=== PATIENT | male | born 1955 | race Caucasian/White ===

== ENCOUNTER 2017-11-17 06:38 | Inpatient (IN) ==
--- NOTE | 2017-11-17 07:09 | Anesthesia Preoperative Report ---
Anesthesia Preoperative Record - Date and Time Date: 11/17/17 Preoperative Diagnosis: Right Hemicolectomy c18.0 Proposed Procedure: Right hemicolectomy NPO Since Date: 11/17/17 NPO Since Time: 00:00 Allergies/Adverse Reactions: Allergies Allergy/AdvReac Type Severity Reaction Status Date / Time No Known Allergies Allergy Verified 11/07/17 15:32 - Vital Signs Vital Signs: Temperature 97.8 F 11/17/17 07:06 Pulse Rate 73 11/17/17 07:06 Respiratory Rate 18 11/17/17 07:06 Blood Pressure 175/104 H 11/17/17 07:06 Pulse Oximetry 96 11/17/17 07:06 Height and Weight: Height 1.73 m Weight 113 kg Body Mass Index 37.8 - Medications Inpatient Medications: Current Medications Ertapenem 1 g/ Sodium Chloride 100 mls @ 200 mls/hr IV PREOP ONE Stop: 11/17/17 16:00 Lactated Ringer's (Lactated Ringers) 1,000 mls @ 50 mls/hr IV .Q20H DARIELA Isopropyl Alcohol (Nozin Nasal Swab) 3 each KEN PREOP ONE Stop: 11/17/17 15:28 Lidocaine HCl (Xylocaine-Mpf 1% Vial) 1 mg ID O ONE Stop: 11/17/17 15:28 Home Medications: Home Medications Medication Instructions Recorded Confirmed Type ferrous sulfate 325 mg (65 mg 325 mg PO DAILY tab 10/16/17 11/16/17 History iron) tablet Is Patient on Beta Eduin?: No - Medical History Respiratory: DENIES: Sleep Apnea Gastrointestional: Reports: Gastroesophageal Reflux Disease, Other (COLON CANCER ) Renal/Endocrine: Reports: Thyroid Disease (DOES NOT TAKE MEDICATION) Other History: Reports: Anesthesia Reactions (N&V), Cancer (COLON) - Surgical History GI Surgery/Treatments: Reports: Appendectomy, Cholecystectomy, Hernia Repair, Colonoscopy Anesthesia Reactions: None Hx Family Anesthesia Reaction: No History of Motion Sickness: No - Social History Smoking Status: Never smoker Hx Chewing Tobacco Use: No Second Hand Exposure: No Substance Use Type: does not use Alcohol Intake Frequency: does not drink - Pertinent Findings EKG: Sinus Rhythm - Physical Exam Respiratory Exam: Present: lungs clear Cardiovascular Exam: Present: regular rate and rhythm - Airway Assessment Mallampati Score: II TMD: 3 Fingerbreadths Neck Extension: fair Overall Assessment: no airway concerns - ASA ASA Score: 3 - Plan Anesthesia: General Inhalation Gases - Discussion Discussion: Discussed risks/options/alternatives of anesthesia and questions answered. Patient consents. Nursing pain assessment noted. Attestation Statement: Prior to the delivery of any anesthetic medication, I examined the patient, developed the plan, obtained the patient's consent and discussed the risk and benefits of the procedure with the patient/guardian. - Additional Information Seen by Anesthesia: Yes
[2017-11-17] MEDS ORDERED: INDOCYANINE GREEN 25mg INJECTION ONE (07:36)
[2017-11-17] MEDS: LR 1,000 ML IV SCH ×3 (07:45→10:47)
[2017-11-17] MEDS ORDERED: SUCCINYLCHOLINE 20mg/mL 10mL INJECTION ONE (08:08)
[2017-11-17] MEDS ORDERED: ROCURONIUM 50 MG/5 ML INJECTION IVP ONE ×2 (08:08→09:51)
[2017-11-17] MEDS ORDERED: PROPOFOL 20 ML ONE (08:08)
[2017-11-17] MEDS ORDERED: LIDOCAINE 2% (100mg/5mL) PF 5ml vl ONE (08:08)
[2017-11-17] MEDS ORDERED: SALINE FLUSH 10ml SYRINGE ONE (08:09)
[2017-11-17] MEDS ORDERED: FentaNYL 250 MCG/5 ML INJECTION ONE (09:03)
[2017-11-17] MEDS ORDERED: GLYCOPYRROLATE 0.4 MG/2 ML INJECTION ONE (09:23)
[2017-11-17] MEDS ORDERED: HYDROMORPHONE 2 MG/ML INJECTION ONE (10:19)
[2017-11-17] MEDS ORDERED: HYDRALAZINE 20 MG/ML INJECTION ONE (10:26)
--- NOTE | 2017-11-17 11:33 | General Surgery Procedure Note ---
Date of Procedure: 11/17/17 Surgeon: Dwight Postoperative Diagnosis: Adenocarcinoma of cecum Procedure: Right hemicolectomy Estimated Blood Loss: See Anesthesia Record.
[2017-11-17] MEDS ORDERED: ONDANSETRON 4 MG/2 ML INJECTION IVP PRN (11:53)
[2017-11-17] MEDS ORDERED: METOCLOPRAMIDE 10mg/2ml INJECTION IVP PRN (11:53)
[2017-11-17] MEDS: HYDROMORPHONE 2 MG/ML INJECTION IVP PRN ×4 (12:11→23:06)
[2017-11-17] MEDS: D5-1/2NS with KCL 20mEq 1,000 ML IV SCH ×2 (13:02→22:23)
[2017-11-17 13:27] VITALS: BMI 39.1
[2017-11-17] MEDS: MORPHINE SULFATE 10 MG SYRINGE IV PRN ×2 (13:33→15:15)
[2017-11-17] MEDS ORDERED: LIDOCAINE 1% (10mg/ml) 2mL INJ PF SDV ID ONE (15:27)
[2017-11-17] MEDS ORDERED: NOZIN NASAL SWAB NAS ONE (15:27)
[2017-11-17] MEDS ORDERED: ERTAPENEM 1 G in NS 100 ML IV ONE (15:31)
[2017-11-17] MEDS: KETOROLAC 15 MG/ML INJECTION IVP PRN (17:38)
--- NOTE | 2017-11-17 21:02 | Operative Note ---
DATE OF OPERATION 11/17/2017 PREOPERATIVE DIAGNOSIS 1. Adenocarcinoma of the cecum. 2. Obesity. POSTOPERATIVE DIAGNOSES 1. Adenocarcinoma of ascending colon. 2. Intraabdominal adhesions. 3. Obesity. OPERATION Laparotomy, lysis of intraabdominal adhesions and open right hemicolectomy. SURGEON Dr. Dwight Ly ANESTHESIA General. ASA Class 3 FINDINGS This patient did have a large bulky mass at the ascending colon. Previous biopsy of this mass at colonoscopy had shown that this was an adenocarcinoma. There were no obvious peritoneal implants present. There were no obvious omental implants present. There was no obvious direct extension of the tumor through the wall of the colon into surrounding structures. The liver was carefully examined and there was no evidence of any metastatic disease at the liver. The small bowel appeared normal. This patient had undergone a previous laparoscopic cholecystectomy operation. There were some adhesions at the subhepatic space from that operation. Gallbladder was absent as a result of previous operative removal. The patient had undergone a previous appendectomy operation. The patient did have an old transversely oriented right lower quadrant abdominal incision scar associated with the previous appendectomy operation. The patient did have intraabdominal adhesions at the right lower quadrant of the abdomen which were thought to be associated with the previous appendectomy operation. These adhesions did bind the greater omentum and loops of intestine to the anterior abdominal wall parietal peritoneum. The greater omentum did extend all the way down into the pelvis and was bound down by adhesions to structures within the pelvis. The patient was noted to have quite a bit of intraabdominal adipose tissue. DESCRIPTION OF OPERATION The patient was placed in supine position on the operating table. General anesthesia was satisfactorily induced. The abdomen was prepped and draped in routine sterile fashion. A midline vertically oriented abdominal incision was made and extended through the abdominal wall. The peritoneal cavity was entered. The Shaan wound protector was placed at the incision at this time. The Codman retractor was assembled at this time and used to provide exposure. The abdomen was explored with findings as described above. Adhesions at the right lower quadrant of the peritoneal cavity were divided. Adhesions binding greater omentum to structures down in the pelvis were divided and the greater omentum was able to be mobilized up out of the pelvis. The greater omentum was also dissected free from the anterior abdominal wall parietal peritoneum at the right side of the abdomen with division of adhesions at this area. The greater omentum was then from the right half of the transverse colon. The hepatic flexure of the colon was mobilized. The peritoneum along the right lateral gutter was incised. The ascending colon was mobilized medially. The duodenum was carefully identified and preserved from injury at this time. The mesentery of the transverse colon was transilluminated. The mesentery of the transverse colon was carefully examined. The position of the middle colic blood vessels was identified. A distal resection margin was selected at the mid transverse colon. The distal resection margin was selected to allow a good blood supply up to the end of the mid transverse colon which would be used for the anastomosis. The middle colic artery and vein were preserved to provide a good blood supply to the end of the remaining mid transverse colon which would be used for the anastomosis. The transverse colon was divided at the distal resection margin with the [employer] brand [id number] linear cutter stapler. This did allow a good blood supply to the remaining mesentery leading up to the remaining transverse colon. A proximal resection margin was selected at the terminal ileum. The terminal ileum was divided at the proximal resection margin with the [employer] brand TLC75 linear cutter stapler. Mesentery beneath the segment of terminal ileum to be resected was divided. This was done by doubly clamping the mesentery with right angle clamps, dividing the mesentery between clamps and ligating the pedicles of mesentery with 0-Vicryl ligatures. The ileocolic artery and vein were divided at the level of the root of the mesentery. The artery and vein were each individually doubly clamped with right angle clamps, divided between clamps and ligated with 0-Vicryl ligatures. The mesentery beneath the ascending colon was then divided at the level of the root of the mesentery. This was done by doubly clamping the mesentery with right angle clamps, dividing the mesentery between the right angle clamps and ligating the pedicles of mesentery with 0-Vicryl ligatures. The mesentery beneath the proximal transverse colon was then clamped and divided and ligated in the same manner. The specimen of terminal ileum, cecum, ascending colon and proximal transverse colon along with the underlying mesentery was then handed off as a specimen for study by the pathologist. Irrigation was performed at the peritoneal cavity. Hemostasis appeared be satisfactory everywhere. The stapled closed end of ileum was then brought up into a position adjacent to the stapled closed end of transverse colon. A functional end-to-end anastomosis was then created between the stapled closed end of the ileum and the stapled closed end of the transverse colon using the [employer] brand TLC75 linear cutter stapler and the [employer] brand TX60B stapler. The internal staple lines were inspected as this was done and they looked good. The external staple lines were also inspected and they looked good. There did appear to be a good blood supply to the anastomosis. There was no tension on the anastomosis. The anastomosis appeared to have satisfactory size. Two stitches of 3-0 Vicryl suture were placed at the crotch of the anastomosis. These were 3-0 Vicryl simple interrupted seromuscular stitches. Some small bowel contents of the ileum were then milked distally down to the anastomosis and through the anastomosis to distend up the anastomosis to look for any evidence of any leak at the anastomosis. This maneuver did not show any leak at the anastomosis. The anastomosis was then examined with immunofluorescence to examine the blood supply to the anastomosis. The patient was given 4 mL (10 mg) of indocyanine green dye intravenously. The [employer] laparoscope with immunofluorescence capability was then used to visualize the anastomosis after the administration of indocyanine green dye. The immunofluorescence at the anastomosis did show that there was a good blood supply to the anastomosis. The opening in the mesentery beneath the anastomosis was then closed with a continuous simple over- and-over stitch using 3-0 Vicryl suture. Hemostasis remained satisfactory throughout the peritoneal cavity. Part of the distal most aspect of the greater omentum did not have much attachment to the rest of the greater omentum. This distal piece of greater omentum was resected at this time and submitted for study by the pathologist. This did leave enough greater omentum remaining to be brought down over the anastomosis and over the loops of intestine beneath the incision. The Codman retractor was removed. The Shaan wound protector was removed. The surgeon, residential assistant and scrub nurse all changed gowns and gloves at this time. New sterile drapes were placed at the incision. A reserved clean instrument tray was used for closing the wound. The abdominal incision was closed. The fascial layer of the incision was closed and the linea alba was reapproximated with a continuous simple over-and- over stitch using #1 PDS suture. The skin margins at the incision were reapproximated with skin kiet. Sterile dressings were applied. Sponge, needle and instrument counts were all correct. The patient did appear to tolerate the operation well. The patient was transferred from the operating room to the recovery room in satisfactory condition. NIRAJ
[2017-11-18] MEDS: HYDROMORPHONE 2 MG/ML INJECTION IVP PRN ×4 (03:15→20:22)
[2017-11-18] MEDS: KETOROLAC 15 MG/ML INJECTION IVP PRN (07:50)
[2017-11-18] MEDS: CALCIUM CARBONATE Chewable 750mg TABLET PO PRN ×2 (08:47→15:33)
[2017-11-18] MEDS: ENOXAPARIN 40 MG/0.4 ML INJECTION SQ SCH (08:48)
[2017-11-18] MEDS: D5-1/2NS with KCL 20mEq 1,000 ML IV SCH ×2 (08:48→19:23)
[2017-11-18] MEDS ORDERED: PANTOPRAZOLE 40 MG INJECTION IVP SCH (09:00)
[2017-11-18] MEDS ORDERED: KETOROLAC 15 MG/ML INJECTION IVP ONE (09:02)
--- NOTE | 2017-11-18 10:22 | Progress Note ---
DATE 11/18/2017 POSTOP DAY #1 HISTORY This patient is in the intensive care unit at this time. The patient is doing well overall. He is alert and oriented. The patient has not been up out of bed yet. He is not having any nausea or vomiting. He is receiving intravenous Dilaudid and intravenous Toradol for pain control. PHYSICAL EXAMINATION VITAL SIGNS: Pulse is 70. Respiratory rate is 17. Blood pressure is 154/82. Oxygen saturation is 95% on room air. ABDOMEN: The abdominal incision looks good. The abdomen is not distended. INTAKE AND OUTPUT Urine output has been adequate. LABORATORY DATA White blood cell count is 9100. Hemoglobin is 12.9. Hematocrit is 38.8. Serum electrolytes are all normal. Serum creatinine is 1. IMPRESSION Doing well following laparotomy, lysis of intraabdominal adhesions and open right hemicolectomy on 11/17/2017. PLAN 1. Attempt to get the patient up out of bed in a chair and ambulate him a little bit today to increase mobilization of the patient. 2. Continue Lovenox and sequential compression devices for deep venous thrombosis prophylaxis. 3. Intravenous Pepcid for GI prophylaxis. MTDD
[2017-11-18] MEDS: FAMOTIDINE PB 20 MG/50 ML BAG IV SCH ×2 (11:17→21:36)
[2017-11-18] MEDS: KETOROLAC 30 MG/ML INJECTION IVP PRN (16:22)
[2017-11-19] MEDS: KETOROLAC 30 MG/ML INJECTION IVP PRN ×3 (02:42→18:28)
[2017-11-19] MEDS: D5-1/2NS with KCL 20mEq 1,000 ML IV SCH ×2 (06:05→17:04)
[2017-11-19] MEDS: FAMOTIDINE PB 20 MG/50 ML BAG IV SCH ×2 (09:06→21:45)
[2017-11-19] MEDS: ENOXAPARIN 40 MG/0.4 ML INJECTION SQ SCH ×2 (09:06→09:13)
--- NOTE | 2017-11-19 10:33 | Progress Note ---
DATE: 11/19/2017 POSTOP DAY #2 HISTORY The patient remains in the Intensive Care Unit. He has been up in the chair. He has been ambulating. He is not having any nausea or vomiting. He is using less analgesics for pain control. He is doing well overall. PHYSICAL EXAMINATION VITAL SIGNS: Temperature is 98.2 degrees Fahrenheit oral. Pulse is 57. Respiratory rate is 16. Blood pressure is 154/76. Oxygen saturation is 96% on room air. ABDOMEN: The abdominal incision looks good. NEUROLOGIC: The patient is alert and oriented. INTAKE AND OUTPUT Urine output is adequate. IMPRESSION Doing well following laparotomy, lysis of intraabdominal adhesions and open right hemicolectomy on 11/17/2017. PLAN 1. Start clear liquid diet with toast and crackers. 2. Continue to advance activity as tolerated. 3. Discontinue Wu catheter. 4. Continue Lovenox and sequential compression devices for deep venous thrombosis prophylaxis. 5. Continue intravenous Pepcid for GI prophylaxis. 6. Transfer patient from Intensive Care Unit out to a room on Surgical Unit. NIRAJ
[2017-11-19] MEDS ORDERED: ACETAMINOPHEN 500 MG TABLET PO PRN (12:13)
[2017-11-19] MEDS ORDERED: Oxycodone *IR* 5 MG TABLET PO PRN (12:13)
[2017-11-19] MEDS: ONDANSETRON 4 MG/2 ML INJECTION IVP PRN ×2 (13:46→20:01)
[2017-11-19] MEDS: PROMETHAZINE 25 MG INJECTION IVP PRN (16:27)
[2017-11-19] MEDS ORDERED: METOCLOPRAMIDE 10mg/2ml INJECTION IVP PRN (22:49)
[2017-11-20] MEDS: PROMETHAZINE 25 MG INJECTION IVP PRN (00:15)
[2017-11-20] MEDS: KETOROLAC 30 MG/ML INJECTION IVP PRN (04:48)
[2017-11-20] MEDS: D5-1/2NS with KCL 20mEq 1,000 ML IV SCH ×2 (04:51→18:07)
[2017-11-20] MEDS ORDERED: PPN - PHARMACY CONSULT MC ONE (09:17)
--- NOTE | 2017-11-20 09:23 | General Surgery Progress Note ---
Subjective Patient reports: pain is less (states minimal pain), no bowel movement (he thinks he might have passed a little flatus.), vomiting (during the night, NG placed and now denies nausea), other (states he is not voiding much, not having trouble starting stream, "just not going much") - Vital Signs Last Vital Signs Temp 97.5 F 11/20/17 07:59 Pulse 85 11/20/17 07:59 Resp 18 11/20/17 07:59 BP 147/96 H 11/20/17 07:59 Pulse Ox 96 11/20/17 07:59 - Laboratory Result Diagrams: 11/20/17 09:42 11/20/17 09:42 - Pathology Pending - Radiology KUB upright shows ileus pattern, NG not completely in the stomach - Abnormal Exam Abdominal: obese, hypoactive bowel sounds (abscent bowel sounds), firm, other ( NG with light bourgeois fluid in canister) - Normal Exam General: awake, alert, no acute distress Cardiovascular: regular rate Respiratory: no labored breathing Abdominal: soft, incision(s) (CDI, kiet in tact, no erythema, ecchmosis) Male: other (urine output 200 ml since midnight) Psychiatric: other (doesn't converse other than to barely answer questions) Neurological: CN 2-12 grossly intact Assessment and Plan (1) Colon cancer, ascending Current Visit: Yes Status: Acute (2) Ileus following gastrointestinal surgery Current Visit: Yes Status: Acute (3) Obesity Current Visit: No Status: Chronic Qualifiers: Body mass index: BMI 38.0-38.9 Plan: POD #3 New development of Ileus. Advance NG about 10 cm. DC clear liquids and continue sips and chips Pharmacy consult for PPN, may need PICC and TPN if ileus does not resolve soon. CBC, BMP now and in am PT consult for ambulation and strength. monitor urine output Encourage ambulation. Hospital Course Summary Disclaimer: The visit summary below is not to be considered part of the above Progress Note. Hospital Course: 11/18/1017 POD #1 IMPRESSION Doing well following laparotomy, lysis of intraabdominal adhesions and open right hemicolectomy on 11/17/2017. PLAN 1. Attempt to get the patient up out of bed in a chair and ambulate him a little bit today to increase mobilization of the patient. 2. Continue Lovenox and sequential compression devices for deep venous thrombosis prophylaxis. 3. Intravenous Pepcid for GI prophylaxis. 11/19/2017 POD #2 PLAN 1. Start clear liquid diet with toast and crackers. 2. Continue to advance activity as tolerated. 3. Discontinue Wu catheter. 4. Continue Lovenox and sequential compression devices for deep venous thrombosis prophylaxis. 5. Continue intravenous Pepcid for GI prophylaxis. 6. Transfer patient from Intensive Care Unit out to a room on Surgical Unit. 11-20-2017 POD #3 New development of Ileus. Advance NG about 10 cm. DC clear liquids and continue sips and chips Pharmacy consult for PPN, may need PICC and TPN if ileus does not resolve soon. CBC, BMP now and in am, watch lytes, WBC, etc. PT consult for ambulation and strength. monitor urine output Encourage ambulation.
--- NOTE | 2017-11-20 09:51 | XRay Report ---
Indication: N/V XR abdomen 2V: Comparison: None Technique: Supine and erect films of the abdomen Findings: Patient shows multiple air-fluid levels involving both large and small bowel suggesting a generalized ileus. Midline soft tissue kiet are identified. No significant free air identified on the upright view. Mild bibasilar atelectasis noted. The NG tube needs to be advanced as it is currently in the distal esophagus. Somewhere between 12 [address] it into the stomach. This was called to the nursing floor. Impression: 1. NG tube needs to be advanced 12 at 15 cm. This was called to the nursing floor when study provided. 2. Random air fluid levels involving both large and small bowel most likely postoperative ileus. No significant free air identified on the upright view. .
--- NOTE | 2017-11-20 09:56 | Pharmacy Consult-TPN/PPN ---
Pharmacy Consult-TPN/PPN - Laboratory Information Chemistry Turbidity < 20 (0-20) 11/18/17 04:21 Sodium 140 MEQ/L (134-144) 11/18/17 04:21 Potassium 4.0 MEQ/L (3.6-5) 11/18/17 04:21 Chloride 105 MEQ/L (98-107) 11/18/17 04:21 Carbon Dioxide 27 MEQ/L (22-30) 11/18/17 04:21 Anion Gap 8 MEQ/L (5-15) 11/18/17 04:21 BUN 15.0 MG/DL (9-20) 11/18/17 04:21 Creatinine 1.0 MG/DL (0.8-1.5) D 11/18/17 04:21 GFR Calculation 76 11/18/17 04:21 BUN/Creatinine Ratio 15 RATIO (6-26) 11/18/17 04:21 Glucose 131 MG/DL (75-110) H 11/18/17 04:21 Calculated Osmolality 272 MOSM/KG (261-280) 11/18/17 04:21 Calcium 8.5 MG/DL (8.4-10.2) D 11/18/17 04:21 Total Bilirubin 0.50 MG/DL (0.20-1.30) 11/17/17 07:12 Icterus Index < 2 (0-7) 11/18/17 04:21 AST 41 U/L (17-59) 11/17/17 07:12 ALT 42 U/L (21-72) 11/17/17 07:12 Alkaline Phosphatase 166 U/L (38-126) H 11/17/17 07:12 Total Protein 8.6 G/DL (6.3-8.2) H 11/17/17 07:12 Albumin 4.8 G/DL (3.5-5.0) 11/17/17 07:12 Globulin 3.8 G/DL (2.4-3.6) H 11/17/17 07:12 Albumin/Globulin Ratio 1.3 RATIO (1.1-2.2) 11/17/17 07:12 Specimen Hemolysis 26 (0-25) H 11/18/17 04:21 Intake and Output 11/19/17 11/20/17 11/21/17 06:59 06:59 06:59 Intake Total 3380.000 / 3380.000 2270.000 / 2270.000 Output Total 1449 / 1449 2275 / 2275 Balance 1931.000 / 1931.000 -5.000 / -5.000 Weight 115.3 kg 115 kg Intake: IV 3050.000 / 3050.000 2090.000 / 2090.000 D5-1/2NS with KCL 20mEq 1,000 3000.000 / 3000.000 1990.000 / 1990.000 ml @ 100 mls/hr IV .Q10H DARIELA Rx #:[id number] Famotidine Pb 20 mg In 50 ml @ 50 / 50 100 / 100 100 mls/hr IV Q12H DARIELA Rx#: [id number] Oral 330 / 330 180 / 180 Output: Urine 400 / 400 Emesis 0 / 0 1200 / 1200 Urine Amount (Catheter) 1449 / 1449 275 / 275 Gastric Drainage 400 / 400 Right Nare 400 / 400 Other: Urine Appearance Clear Clear Urine Color Yellow Light Cristel Emesis Description Bile Retching Fecal Matter # Bowel Movements 0 # Unmeasured Emesis Episodes 3 - Consult Information Consult noted by Osbaldo Spears to begin PPN on Mr Elam, who is 62 years old and weighs 115kg. His electrolytes are in normal range. Will begin standard PPN at 100 mls/hr and continue to monitor. Thank you.
[2017-11-20] MEDS: FAMOTIDINE PB 20 MG/50 ML BAG IV SCH ×2 (10:32→21:36)
[2017-11-20] MEDS: ENOXAPARIN 40 MG/0.4 ML INJECTION SQ SCH (10:32)
[2017-11-20] MEDS: MULTI-VIT INFUSION 10 ML, MULTI-TRACE ELEMENTS 1 ML in PPN - STANDARD FORMULA 2,000 ML IV SCH (11:42)
[2017-11-20] MEDS ORDERED: D5-1/2NS with KCL 20mEq 1,000 ML IV SCH (15:15)
--- NOTE | 2017-11-20 15:50 | Progress Note ---
DATE OF SERVICE 11/20/2017 FINDINGS Mr. Elam was without complaints this morning. I was notified last evening that he was experiencing repeated nausea and vomiting. It was my intubation that the patient most likely had a postoperative ileus and I had ordered an EGD to be placed as well as obtaining some additional films this morning. Upon questioning the patient he denies really any abdominal pain. His only complaint was that of prior nausea and vomiting. This morning he denies significant nausea. PHYSICAL EXAM VITAL SIGNS: Afebrile, normotensive. Please refer to EMR. CHEST: Clear to auscultation bilaterally. HEART: Regular rate and rhythm. Normal S1 and S2 without gallops, murmurs or clicks. ABDOMEN: Visualization reveals his midline incision to be without evidence for erythema or exudate. Palpation of the abdomen reveals it to be soft with only minimal incisional tenderness being present. LABORATORY/RADIOGRAPHIC EVALUATION The patient had a CBC today and his white count overall is stable at 10.7. Hemoglobin is stable at 13.5. BMP was obtained and his potassium is slightly elevated at 5.1. Glucose was slightly elevated at 214. Radiographically, the patient had a KUB and upright obtained. X-ray was consistent with that of a postoperative ileus with multiple random air-fluid levels involving both large bowel and small bowel being present. NG was present at the level of the distal esophagus but was not within the stomach. It was recommended that ng be advance. ASSESSMENT 62-year-old gentleman status post right hemicolectomy with development of postoperative ileus. PLAN Will continue with NG suction and IV fluids. May begin parenteral nutrition in light of his ileus. Will continue to follow along closely in the patient's postoperative care. NIRAJ
[2017-11-20] MEDS ORDERED: FAT EMULSION 20% 500 ML IV SCH (16:00)
[2017-11-20] MEDS ORDERED: NS 1,000 ML IV SCH ×2 (16:30→22:30)
--- NOTE | 2017-11-20 16:36 | Event Note ---
BP has remained elevated, vomiting thought to be contributing factor last night , but still elevated mid afternoon today. He takes no BP meds at home. Plan: consult hospitalist, Dr. Laureano accepted consult. Urine output report only 200 and very dark on day shift, with post void bladder scan about 120. NS 100/hr for 6 hours, then decrease to 25ml/hr, will continue PPN at 100 ml/hr
--- NOTE | 2017-11-20 17:48 | Consult Note ---
Consult Information - Data of Consult Consult date: 11/20/17 Requesting Physician: Nick Meraz MD Primary Care Provider: Osbaldo Temple MD Family Provider: Osbaldo Temple MD - Consult Narrative Reason for consult: Elevated blood pressure History of present illness: 62 y/o male admitted for resection of colon resection due to cancer. Developed ab pain in September of 2017 - during work up for his ab pain underwent CT AB/ Pelvis showing irregularity and wall thickening in cecum-mildly prominent lymph nodes noted. Refer to Dr Quintanilla and underwent EGD/Colonoscopy. Mass in cecum found, suspicious for cancer. Pathology did show mod differentiated colonic adenocarcinoma. Admitted of 11/17/17 for resection. Underwent open right hemicolectomy. Post operatively, blood pressures have been variable with high reading at times. Patient does not have HTN. Reviewing clinic note from fall 2016, BP was elevated at than time. Patient did monitor BP and reviewed his log with Dr Temple at F/U visit -- normal BP reported. Patient does note some variable ab pain. Denies chest pressure or palpitations. Feels breathing well. Minimal nausea. Passing small amounts of flatus. Past Medical History Patient Stated Medical History Heart Murmur Yes Sleep Apnea No Gastroesophageal Reflux Yes Disease Other GI Yes: COLON CANCER Other Yes: KIDNEY CYST Anemia Yes Anesthesia Reactions Yes: N&V Clinic Medical History (Last Reviewed 11/07/17 @ 15:32 by Kelley Walls Rod) Hypothyroidism (Chronic Medical) Obesity (Chronic Medical) Hx of chronic pancreatitis (Chronic Medical) 3 episodes Surgical History: 1. Appendectomy when 6 years old in [place], [place]. 2. Right inguinal hernia repair at some time in the late 1980s at [place], [place]. 3. Laparoscopic cholecystectomy in 2006 at [facility] at [place], [place]. The patient states he had pancreatitis at the time of this hospitalization. 4. Repair of traumatic amputation wound at tip of right index finger in 2009 or 2010 at [facility] at [place], [place]. The traumatic amputation was a work injury. 5. Esophagogastroduodenoscopy and total colonoscopy with polypectomy and biopsies on 10/27/[address] Quintanilla at [facility] at [place], [place]. Findings were normal at the upper gastrointestinal tract. JATIN test study performed at esophagogastroduodenoscopy was negative. The patient did have ten colon polyps and one rectal polyp removed at this procedure. The rectal polyp was a tubular adenoma rectal polyp. There were eight adenomatous colon polyps and two hyperplastic colon polyps removed at the total colonoscopy procedure. The patient had a mass at the cecum. Biopsies of the mass at the cecum did show invasive moderately differentiated colonic adenocarcinoma. The patient has had other previous hospitalizations as follows. 1. Hospitalized from 12/01 to 12/04/2015 at [facility] at [place], [place]. Discharge diagnoses for this hospitalization were acute pancreatitis likely due to alcohol , acute on chronic recurrent pancreatitis, early pneumonia secondary to pancreatitis, dehydration, gastroesophageal reflux disease, obesity, irritable bowel syndrome and hypertension. 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 Current residence: Apartment/Private Home Social history: Dr Temple is PCP Review of Systems - Constitutional Constitutional: Absent: fever(s) - Cardiovascular Cardiovascular: Absent: chest pain, palpitations, edema - Respiratory Respiratory: Absent: cough, dyspnea, wheezing, chest congestion - Gastrointestinal Gastrointestinal: Present: abdominal pain, nausea - Genitourinary Genitourinary: Absent: dysuria - Musculoskeletal Musculoskeletal: Absent: muscle cramps, muscle weakness, myalgias - Integumentary/Breasts Integumentary: Absent: lesions, rash - Neurological Neurological: Absent: focal weakness, memory loss, numbness - Endocrine Endocrine: Absent: palpitations, polydipsia, polyphagia, polyuria - Hematologic/Lymphatic Hematologic/Lymphatic: Absent: easy bleeding, easy bruising - Allergic/Immunologic Allergic/Immunologic: Absent: tongue swelling, itchy eyes Medications Home Medications Medication Instructions Recorded Confirmed Type ferrous sulfate 325 mg (65 mg 325 mg PO DAILY tab 10/16/17 11/17/17 History iron) tablet Hydrocodone/APAP 5/325 [[place] 1 tab PO DAILY PRN 11/17/17 11/17/17 History 5/325] Ranitidine [Zantac] 150 mg PO DAILY 11/17/17 11/17/17 History Allergies Allergy/AdvReac Type Severity Reaction Status Date / Time No Known Allergies Allergy Verified 11/17/17 07:13 Exam Vital Signs: Temperature 98.4 F 11/20/17 15:49 Pulse Rate 72 11/20/17 15:49 Respiratory Rate 18 11/20/17 15:49 Blood Pressure 175/91 H 11/20/17 15:49 Pulse Oximetry 96 11/20/17 15:49 Height/Weight/BMI: Height 1.73 m Weight 115 kg Body Mass Index 39.1 - Constitutional Present: well nourished, well developed, average body habitus, obese, cooperative - Routine HEENT Exam Head: Present: normocephalic, atraumatic Eye: Present: EOMI, PERRL. Absent: conjunctival icterus ENT: Present: mucous membranes moist - Routine Neck Exam Present: supple, full ROM, trachea midline - Routine Respiratory Exam Present: CTA bilaterally. Absent: respiratory distress, rhonchi, wheezes, crackles - Routine Cardiovascular Exam Present: RRR, no murmur - Routine Abdominal Exam Present: soft, non distended. Absent: normoactive bowel sounds (Decreased ) - Routine Extremities Exam Present: pulses intact. Absent: cyanosis, clubbing - Routine Skin Exam Present: dry, warm - Routine Neurological Exam Present: alert, oriented X3, CN II-XII intact, normal tone, vision grossly intact, hearing grossly intact, normal speech. Absent: motor deficit, altered mental status - Routine Psychiatric Exam Present: normal affect, normal thought process, cooperative Results - Labs CBC & Chem 7: 11/20/17 09:42 11/20/17 09:42 Assessment and Plan (1) Elevated blood pressure, situational Current visit: Yes Status: Acute Assessment and Plan: Assessment Elevated blood pressure - post op pain and elevated volume status likely contributing to increase blood pressure Hyperglycemia secondary to PPN Hypothyroidism - TSH with slight elevation at last clinic visit. Obesity S/P right hemicolectomy secondary to adenocarcinoma Post op ileus Plan Will start Norvasc 5mg orally daily to help blood pressure control. May give with sips of water and clamp tube after administration. Monitor for hypotension in post op setting. Continue with supportive post op care as outlined by Sx. Continue with IVF for support. Recheck BMP in am due to initiation of Norvasc. Will follow along. Case discussed with Dr Meraz. DVT Prophylaxis: SCD's Resuscitation Status: Full Code - Physician Narrative Physician: Wayne Laureano MD Narrative: Date: 11/20/17 Time: 1740 Hospital Course Summary Disclaimer: The visit summary below is not to be considered part of the above Progress Note. Hospital Course: 11/18/1017 POD #1 IMPRESSION Doing well following laparotomy, lysis of intraabdominal adhesions and open right hemicolectomy on 11/17/2017. PLAN 1. Attempt to get the patient up out of bed in a chair and ambulate him a little bit today to increase mobilization of the patient. 2. Continue Lovenox and sequential compression devices for deep venous thrombosis prophylaxis. 3. Intravenous Pepcid for GI prophylaxis. 11/19/2017 POD #2 PLAN 1. Start clear liquid diet with toast and crackers. 2. Continue to advance activity as tolerated. 3. Discontinue Wu catheter. 4. Continue Lovenox and sequential compression devices for deep venous thrombosis prophylaxis. 5. Continue intravenous Pepcid for GI prophylaxis. 6. Transfer patient from Intensive Care Unit out to a room on Surgical Unit. 11-20-2017 POD #3 New development of Ileus. Advance NG about 10 cm. DC clear liquids and continue sips and chips Pharmacy consult for PPN, may need PICC and TPN if ileus does not resolve soon. CBC, BMP now and in am, watch lytes, WBC, etc. PT consult for ambulation and strength. monitor urine output Encourage ambulation.
[2017-11-20] MEDS: AMLODIPINE 5 MG TABLET PO SCH (17:49)
--- NOTE | 2017-11-21 08:17 | XRay Report ---
Indication: ileus PROCEDURE: XR abdomen 2V: Encounter: Initial Comparison: Radiographs dated November 20, 2017 Findings: Surgical kiet again noted. Nasogastric tube has been advanced with the tip now projecting over the proximal stomach. Diffusely dilated small and large bowel with air-fluid levels again seen. The overall degree of bowel distention has improved. No free air. There is colonic gas seen diffusely. Impression: Slight interval improvement in the ileus pattern. .
--- NOTE | 2017-11-21 08:21 | General Surgery Progress Note ---
Subjective Patient reports: feels better, flatus (states he is passing a fair amount of flatus, no BM yet but insists it is because he has not eaten anything. ) Narrative: Denies chest pain, SOA, nausea. Norvasc started yesterday for elevated BP. - Vital Signs Last Vital Signs Temp 96.0 F L 11/21/17 07:00 Pulse 74 11/21/17 07:00 Resp 16 11/21/17 07:00 BP 128/87 11/21/17 07:00 Pulse Ox 94 11/21/17 07:00 - Laboratory Result Diagrams: 11/22/17 04:16 11/22/17 04:16 - Radiology KUB upright Indication: ileus PROCEDURE: XR abdomen 2V: Encounter: Initial Comparison: Radiographs dated November 20, 2017 Findings: Surgical kiet again noted. Nasogastric tube has been advanced with the tip now projecting over the proximal stomach. Diffusely dilated small and large bowel with air-fluid levels again seen. The overall degree of bowel distention has improved. No free air. There is colonic gas seen diffusely. Impression: Slight interval improvement in the ileus pattern. - Normal Exam General: awake, alert Cardiovascular: regular rate Respiratory: clear bilaterally, no labored breathing Abdominal: BS normo active x4 (lots of gurgling BS), soft, appropriately tender (midline, states minimal tenderness), non-tender (lateral palpation), incision(s ) (CDI [place] in tact) Psychiatric: normal affect Assessment and Plan (1) Colon cancer, ascending Current Visit: Yes Status: Acute (2) Ileus following gastrointestinal surgery Current Visit: Yes Status: Acute (3) Obesity Current Visit: No Status: Chronic Qualifiers: Body mass index: BMI 38.0-38.9 (4) Elevated BP without diagnosis of hypertension Current Visit: Yes Status: Suspected Plan: KUB upright looks better today, some improvement in distention and air-fluid levels. Passing quite a bit of flatus and a lot of bowel sounds. Will clamp NG and start clears sparingly if he is able to swallow with NG (he is thinking he will not be able to swallow). If no nausea and ileus is resolving, will DC NG later today or tomorrow. BP is better, Norvasc started yesterday, thank you Dr. Laureano for your assistance in caring for Mr. Elam. ADDENDUM: visited with Dr. Meraz regarding above, will proceed with SBFT with Gastrografin through NG today. Hospital Course Summary Disclaimer: The visit summary below is not to be considered part of the above Progress Note. Hospital Course: 11/18/1017 POD #1 IMPRESSION Doing well following laparotomy, lysis of intraabdominal adhesions and open right hemicolectomy on 11/17/2017. PLAN 1. Attempt to get the patient up out of bed in a chair and ambulate him a little bit today to increase mobilization of the patient. 2. Continue Lovenox and sequential compression devices for deep venous thrombosis prophylaxis. 3. Intravenous Pepcid for GI prophylaxis. 11/19/2017 POD #2 PLAN 1. Start clear liquid diet with toast and crackers. 2. Continue to advance activity as tolerated. 3. Discontinue Wu catheter. 4. Continue Lovenox and sequential compression devices for deep venous thrombosis prophylaxis. 5. Continue intravenous Pepcid for GI prophylaxis. 6. Transfer patient from Intensive Care Unit out to a room on Surgical Unit. 11-20-2017 POD #3 New development of Ileus. Advance NG about 10 cm. DC clear liquids and continue sips and chips Pharmacy consult for PPN, may need PICC and TPN if ileus does not resolve soon. CBC, BMP now and in am, watch lytes, WBC, etc. PT consult for ambulation and strength. monitor urine output Encourage ambulation. 11-21-2017 POD #4 KUB upright looks better today, some improvement in distention and air-fluid levels. Passing quite a bit of flatus and a lot of bowel sounds. Will clamp NG and start clears sparingly if he is able to swallow with NG (he is thinking he will not be able to swallow). If no nausea and ileus is resolving, will DC NG later today or tomorrow. BP is better, Norvasc started yesterday, thank you Dr. Laureano for your assistance in caring for Mr. Elam. Dr. Laureano consulted yesterday for elevated BP, Norvasc started and BP improved. Evensalome ng Rounds: I have discontinued NG. Will begin to slowly advance diet as tolerated. I did review with the patient this evening his pathology report which did return "quite well." He was found to have a tumor that did extend through the wall of the colon and he had 0 out of 23 positive lymph nodes. Hopefully over the next 24-48 hours the patient's diet will be able to be advanced as tolerated and he will be able to be discharged at that time. Plan - 11/21/17 (Mirakian) Overall, Mr. Elam appears to be making gains. Blood pressure improved with initiation of Norvasc 5mg on 11/20/17. Will continue Norvasc and continue to monitor blood pressure closely. Monitor for signs of hypotension.
[2017-11-21] MEDS: ENOXAPARIN 40 MG/0.4 ML INJECTION SQ SCH (10:03)
[2017-11-21] MEDS: FAMOTIDINE PB 20 MG/50 ML BAG IV SCH ×2 (10:03→22:11)
[2017-11-21] MEDS: AMLODIPINE 5 MG TABLET PO SCH (10:04)
[2017-11-21] MEDS ORDERED: NS FLUSH BAG 500ml IV PRN (10:05)
--- NOTE | 2017-11-21 10:15 | Progress Note ---
- Date 11/21/17 Subjective: Mr. Elam is seen this morning in follow up for his hypertension and recent right hemicolectomy. He is seen while sitting in his recliner with nursing at bedside. He admits to some mild discomfort in his lower abdomen with standing and movement but denies any other concerns or complaints. No chest pain, shortness of breath, abdominal pain, nausea, vomiting or dysuria. He was seen and evaluated by surgery this morning and appears to be making gains. Repeat KUB this morning revealed slight interval improvement with regard to his ileus. Currently his NG tube is clamped with hopes of removal later this afternoon. No bowel movement yet but he admits to passing gas and having loud, active bowel sounds. Blood pressure significantly improved with the initiation of Norvasc on 11/20/16. Objective Vital signs: Temperature 96.0 F L 11/21/17 07:00 Pulse Rate 74 11/21/17 07:00 Respiratory Rate 16 11/21/17 07:00 Blood Pressure 128/87 11/21/17 07:00 Pulse Oximetry 94 11/21/17 07:00 Height/Weight/BMI: Height 5 ft 8 in Weight 253 lb 8.505 oz Body Mass Index 39.1 Comments: sitting in recliner; nursing at bedside. - Constitutional Present: no acute distress, well nourished, well developed, obese, cooperative - Routine HEENT Exam Head: Present: normocephalic, atraumatic Eye: Present: PERRL. Absent: conjunctival icterus ENT: Present: mucous membranes dry - Routine Respiratory Exam Present: CTA bilaterally. Absent: rales, rhonchi, stridor, wheezes, crackles - Routine Cardiovascular Exam Present: RRR, S1, S2 - Routine Abdominal Exam Present: soft, normoactive bowel sounds, distended. Absent: rebound, guarding - Routine Extremities Exam Present: no edema, full ROM, pulses intact. Absent: calf tenderness - Routine Back/Spine/Pelvis Exam Back/Spine: Present: full ROM. Absent: vertebral tenderness - Routine Musculoskeletal Exam Musculoskeletal: Present: moving extremities well - Routine Skin Exam Present: dry, warm. Absent: jaundice Comments: afebrile. - Routine Neurological Exam Present: alert, oriented X3, moving all extremities, normal speech - Routine Lymphatic Exam Lymphatic: Absent: lymphedema - Routine Psychiatric Exam Present: cooperative Results - Labs CBC & Chem 7: 11/21/17 04:06 11/21/17 04:06 Assessment and Plan (1) Elevated blood pressure, situational Current visit: Yes Status: Acute Assessment and Plan: Assessment Elevated blood pressure - post op pain and elevated volume status likely contributing to increase blood pressure Hyperglycemia secondary to PPN Hypothyroidism - TSH with slight elevation at last clinic visit. Obesity S/P right hemicolectomy secondary to adenocarcinoma Post op ileus Plan - 11/21/17 (Mirakian) Overall, Mr. Elam appears to be making gains. Repeat KUB today revealed slight interval improvement in the ileus pattern. NG was clamped with anticipation of removal later this afternoon. Blood pressure improved with initiation of Norvasc 5mg on 11/20/17. Will continue Norvasc and continue to monitor blood pressure closely. Monitor for signs of hypotension. Continue with supportive post op care as outlined by surgery. Continue with IVF for support until NG removed and patient tolerating oral intake. DVT Prophylaxis: SCD's, Lovenox GI Prophylaxis: Pepcid Resuscitation Status: Full Code - Time spent with patient Time with patient PN: 35 minutes - Physician Narrative Physician: Wayne Laureano MD Narrative: Date: 11/21/17 Time: 2030 Have independently interviewed and examined pt. Chart reviewed. Case discussed with Dr Meraz and my PA. Above care plan developed with my supervision; agree with above. Passing loose stools since Gastrografin SBFT. Denies ab pain/cramps. No nausea. Breathing well-not SOA or congested. No pain with breathing. Lungs: clear CV: regular AB: soft nt/nd BS decreased MSE: awake alert appropriate Plan: Will continue with Norvasc for BP control. Diet advanced by Dr Meraz- PPN stopped. Continue with supportive post op care. Medically improving. Hospital Course Summary Disclaimer: The visit summary below is not to be considered part of the above Progress Note. Hospital Course: 11/18/1017 POD #1 IMPRESSION Doing well following laparotomy, lysis of intraabdominal adhesions and open right hemicolectomy on 11/17/2017. PLAN 1. Attempt to get the patient up out of bed in a chair and ambulate him a little bit today to increase mobilization of the patient. 2. Continue Lovenox and sequential compression devices for deep venous thrombosis prophylaxis. 3. Intravenous Pepcid for GI prophylaxis. 11/19/2017 POD #2 PLAN 1. Start clear liquid diet with toast and crackers. 2. Continue to advance activity as tolerated. 3. Discontinue Uw catheter. 4. Continue Lovenox and sequential compression devices for deep venous thrombosis prophylaxis. 5. Continue intravenous Pepcid for GI prophylaxis. 6. Transfer patient from Intensive Care Unit out to a room on Surgical Unit. 11-20-2017 POD #3 New development of Ileus. Advance NG about 10 cm. DC clear liquids and continue sips and chips Pharmacy consult for PPN, may need PICC and TPN if ileus does not resolve soon. CBC, BMP now and in am, watch lytes, WBC, etc. PT consult for ambulation and strength. monitor urine output Encourage ambulation. 11-21-2017 POD #4 KUB upright looks better today, some improvement in distention and air-fluid levels. Passing quite a bit of flatus and a lot of bowel sounds. Will clamp NG and start clears sparingly if he is able to swallow with NG (he is thinking he will not be able to swallow). If no nausea and ileus is resolving, will DC NG later today or tomorrow. BP is better, Norvasc started yesterday, thank you Dr. Laureano for your assistance in caring for Mr. Elam. Dr. Laureano consulted yesterday for elevated BP, Norvasc started and BP improved. Plan - 11/21/17 (Mirakian) Overall, Mr. Elam appears to be making gains. Repeat KUB today revealed slight interval improvement in the ileus pattern. NG was clamped with anticipation of removal later this afternoon. Blood pressure improved with initiation of Norvasc 5mg on 11/20/17. Will continue Norvasc and continue to monitor blood pressure closely. Monitor for signs of hypotension. Continue with supportive post op care as outlined by surgery. Continue with IVF for support until NG removed and patient tolerating oral intake.
[2017-11-21] MEDS ORDERED: DIATRIZOATE MEGLUMINE/SOD. (66%/10%) 120ml SOLN ONE (10:25)
[2017-11-21] MEDS: KETOROLAC 30 MG/ML INJECTION IVP PRN (11:53)
--- NOTE | 2017-11-21 14:15 | XRay Report ---
Indication: ?ILEUS RESOLVING PROCEDURE: XR small bowel follow through: Encounter: Initial Comparison: Abdominal x-rays from earlier today Findings: Water-soluble contrast was administered followed by serial abdominal radiographs. This demonstrated initial slow motility through dilated proximal small bowel. Small bowel dilatation up to 5 cm in diameter. Contrast reached the rectum by 3 h and 15 minutes after administration excluding a complete obstruction. Impression: Normal intestinal transit time of less than three hours. .
[2017-11-21] MEDS: MULTI-VIT INFUSION 10 ML, MULTI-TRACE ELEMENTS 1 ML in PPN - STANDARD FORMULA 2,000 ML IV SCH (15:53)
[2017-11-21] MEDS: NS 1,000 ML IV SCH ×2 (15:53→18:54)
--- NOTE | 2017-11-21 20:11 | Progress Note ---
DATE 11/21/2017 FINDINGS Mr. Elam was in good spirits this evening. He states he had several loose bowel movements after his Gastrografin small bowel follow-through. He has tolerated discontinuation of his NG without difficulty. EXAM VITAL SIGNS: Afebrile, normotensive. Please refer to EMR. ABDOMEN: Soft. Minimal incisional tenderness. LABORATORY/RADIOGRAPHIC EVALUATION The patient's CBC today was unremarkable. White count stable at 8.0. Hemoglobin stable at 13.2. CMP obtained today and his total bilirubin was minimally elevated at 1.6. Otherwise, no marked abnormalities were noted. I did go ahead and elect today to proceed today with a Gastrografin small bowel follow-through which did progress through his small bowel in a normal time frame/transit. NG was subsequently discontinued. . ASSESSMENT 62-year-old gentleman status post right hemicolectomy with development of postoperative ileus which at this time appears to have resolved. PLAN I have discontinued NG. Will begin to slowly advance diet as tolerated. I did review with the patient this evening his pathology report which did return "quite well." He was found to have a tumor that did extend through the wall of the colon and he had 0 out of 23 positive lymph nodes. Hopefully over the next 24-48 hours the patient's diet will be able to be advanced as tolerated and he will be able to be discharged at that time. [facility]
[2017-11-22] MEDS: NS 1,000 ML IV SCH ×2 (04:46→15:52)
--- NOTE | 2017-11-22 08:14 | General Surgery Progress Note ---
Subjective Patient reports: feels better, pain is less, tolerating liquids well (will have a regular breakfast), voiding w/o difficulty, flatus, bowel movement (loose and frequent yesterday after Gastrografin, stools have slowed down during the night. ) Narrative: Will get appointment with Dr. Temple next week for BP check, with Dr. Quintanilla December 01 for post op. - Vital Signs Last Vital Signs Temp 97.1 F 11/22/17 07:36 Pulse 65 11/22/17 07:36 Resp 14 11/22/17 07:36 BP 137/85 11/22/17 07:36 Pulse Ox 96 11/22/17 07:36 - Laboratory Result Diagrams: 11/23/17 03:52 11/23/17 03:52 - Normal Exam Respiratory: no labored breathing Abdominal: BS normo active x4, soft, appropriately tender (midline), non-tender (lateral), incision(s) (CDI no erythema, ecchymosis) Psychiatric: normal affect Assessment and Plan (1) Colon cancer, ascending Current Visit: Yes Status: Acute (2) Ileus following gastrointestinal surgery Current Visit: Yes Status: Acute (3) Obesity Current Visit: No Status: Chronic Qualifiers: Body mass index: BMI 38.0-38.9 (4) Elevated BP without diagnosis of hypertension Current Visit: Yes Status: Suspected Plan: POD #5 Doing well, regular diet starting with breakfast. If he tolerates this today, may discharge later today or tomorrow. BP managed by hospitalist, appointment with Dr. Temple next week. Dr. Meraz discussed the good pathology report, no lymph nodes involved. Hospital Course Summary Disclaimer: The visit summary below is not to be considered part of the above Progress Note. Hospital Course: 11/18/1017 POD #1 IMPRESSION Doing well following laparotomy, lysis of intraabdominal adhesions and open right hemicolectomy on 11/17/2017. PLAN 1. Attempt to get the patient up out of bed in a chair and ambulate him a little bit today to increase mobilization of the patient. 2. Continue Lovenox and sequential compression devices for deep venous thrombosis prophylaxis. 3. Intravenous Pepcid for GI prophylaxis. 11/19/2017 POD #2 PLAN 1. Start clear liquid diet with toast and crackers. 2. Continue to advance activity as tolerated. 3. Discontinue Wu catheter. 4. Continue Lovenox and sequential compression devices for deep venous thrombosis prophylaxis. 5. Continue intravenous Pepcid for GI prophylaxis. 6. Transfer patient from Intensive Care Unit out to a room on Surgical Unit. 2018 POD #3 New development of Ileus. Advance NG about 10 cm. DC clear liquids and continue sips and chips Pharmacy consult for PPN, may need PICC and TPN if ileus does not resolve soon. CBC, BMP now and in am, watch lytes, WBC, etc. PT consult for ambulation and strength. monitor urine output Encourage ambulation. 2018 POD #4 KUB upright looks better today, some improvement in distention and air-fluid levels. Passing quite a bit of flatus and a lot of bowel sounds. Will clamp NG and start clears sparingly if he is able to swallow with NG (he is thinking he will not be able to swallow). If no nausea and ileus is resolving, will DC NG later today or tomorrow. BP is better, Norvasc started yesterday, thank you Dr. Laureano for your assistance in caring for Mr. Elam. Dr. Laureano consulted yesterday for elevated BP, Norvasc started and BP improved. Evening Rounds: I have discontinued NG. Will begin to slowly advance diet as tolerated. I did review with the patient this evening his pathology report which did return "quite well." He was found to have a tumor that did extend through the wall of the colon and he had 0 out of 23 positive lymph nodes. Hopefully over the next 24-48 hours the patient's diet will be able to be advanced as tolerated and he will be able to be discharged at that time. Plan - 11/21/17 (Mirakian) Overall, Mr. Elam appears to be making gains. Blood pressure improved with initiation of Norvasc 5mg on 11/20/17. Will continue Norvasc and continue to monitor blood pressure closely. Monitor for signs of hypotension. 2018 POD #5 Doing well, regular diet starting with breakfast. If he tolerates this today, may discharge later today or tomorrow. BP managed by hospitalist, appointment with Dr. Temple next week. Post op with Dr. Quintanilla 12/01. Dr. Meraz discussed the good pathology report, no lymph nodes involved Mariya note: I am pleased with the patient's progress from a surgical standpoint at this time. Will go ahead and heplock his IV fluids this evening. If he continues tolerating a regular diet without difficulty we will likely discharge the patient tomorrow morning.
[2017-11-22] MEDS: ENOXAPARIN 40 MG/0.4 ML INJECTION SQ SCH (08:46)
[2017-11-22] MEDS: AMLODIPINE 5 MG TABLET PO SCH (08:46)
[2017-11-22] MEDS: FAMOTIDINE PB 20 MG/50 ML BAG IV SCH ×2 (08:47→20:48)
--- NOTE | 2017-11-22 19:25 | Progress Note ---
DATE OF SERVICE 11/22/2017 FINDINGS Mr. Elam this evening was in good spirits. He has had no element of nausea or vomiting today. He states that his loose stools have resolved. EXAM VITAL SIGNS: Afebrile, normotensive. Please refer to EMR. ABDOMEN: Soft, nontender. Incision is clean, dry and intact. LABORATORY/RADIOGRAPHIC EVALUATION The patient had a CBC today that was unremarkable. White count remains stable at 7.6. Hemoglobin is overall stable at 11.2. BMP obtained and found to be without marked abnormalities. ASSESSMENT 62-year-old gentleman status post right hemicolectomy. Patient with a component of postoperative ileus that has now resolved. Patient with component of postoperative hypertension. Hospitalist has been managing the patient's hypertension. PLAN I am pleased with the patient's progress from a surgical standpoint at this time. Will go ahead and heplock his IV fluids this evening. If he continues tolerating a regular diet without difficulty we will likely discharge the patient tomorrow morning. PAULIED
[2017-11-23 00:25] VITALS: PULSE 69
[2017-11-23 07:36] VITALS: BP 134/75; RESP 16; TEMP 98.2; O2SAT 96
[2017-11-23] MEDS ORDERED: FAMOTIDINE 40 MG/5 ML ORAL LIQUID PO SCH (09:00)
[2017-11-23] MEDS ORDERED: FAMOTIDINE 20 MG TABLET PO SCH (09:00)
--- NOTE | 2017-11-23 09:05 | General Surgery Progress Note ---
Subjective Patient reports: feels better, pain is less, tolerating a regular diet, voiding w/o difficulty, flatus, bowel movement, afebrile Narrative: States he slept "ok" last night, doesn't like the bed. Has been ambulating the halls alone without difficulty. States his daughter will be here to take him home. He is currently waiting for towels so he can shower this morning. Denies chest pain , SOA, dizzingess, nausea. - Vital Signs Last Vital Signs Temp 98.2 F 11/23/17 07:35 Pulse 69 11/23/17 07:35 Resp 16 11/23/17 07:35 BP 134/75 11/23/17 07:35 Pulse Ox 96 11/23/17 07:35 - Laboratory Result Diagrams: 11/23/17 03:52 11/23/17 03:52 - Normal Exam General: awake, alert, oriented, no acute distress Respiratory: no labored breathing Abdominal: BS normo active x4, soft, appropriately tender (midline), non-tender (lateral), incision(s) (CDI very minimal erythema now around each staple leg, consistent with foreign body reaction, NO generalized erythema associated with infection) Psychiatric: normal affect Neurological: CN 2-12 grossly intact Assessment and Plan (1) Colon cancer, ascending Current Visit: Yes Status: Acute (2) Ileus following gastrointestinal surgery Current Visit: Yes Status: Acute (3) Obesity Current Visit: No Status: Chronic Qualifiers: Body mass index: BMI 38.0-38.9 (4) Elevated BP without diagnosis of hypertension Current Visit: Yes Status: Suspected Plan: Doing quite well, ready for discharge. He still thinks he does not have HTN, appointment with Dr. Temple for 11/27, Rx Norvasc for 14 days e-scripted to [facility] Follow up with Dr. Quintanilla 12/01 for post op care and oncology recommendations. Hospital Course Summary Disclaimer: The visit summary below is not to be considered part of the above Progress Note. Hospital Course: 11/18/1017 POD #1 IMPRESSION Doing well following laparotomy, lysis of intraabdominal adhesions and open right hemicolectomy on 11/17/2017. PLAN 1. Attempt to get the patient up out of bed in a chair and ambulate him a little bit today to increase mobilization of the patient. 2. Continue Lovenox and sequential compression devices for deep venous thrombosis prophylaxis. 3. Intravenous Pepcid for GI prophylaxis. 11/19/2017 POD #2 PLAN 1. Start clear liquid diet with toast and crackers. 2. Continue to advance activity as tolerated. 3. Discontinue Wu catheter. 4. Continue Lovenox and sequential compression devices for deep venous thrombosis prophylaxis. 5. Continue intravenous Pepcid for GI prophylaxis. 6. Transfer patient from Intensive Care Unit out to a room on Surgical Unit. 11-20-2017 POD #3 New development of Ileus. Advance NG about 10 cm. DC clear liquids and continue sips and chips Pharmacy consult for PPN, may need PICC and TPN if ileus does not resolve soon. CBC, BMP now and in am, watch lytes, WBC, etc. PT consult for ambulation and strength. monitor urine output Encourage ambulation. 11-21-2017 POD #4 KUB upright looks better today, some improvement in distention and air-fluid levels. Passing quite a bit of flatus and a lot of bowel sounds. Will clamp NG and start clears sparingly if he is able to swallow with NG (he is thinking he will not be able to swallow). If no nausea and ileus is resolving, will DC NG later today or tomorrow. BP is better, Norvasc started yesterday, thank you Dr. Laureano for your assistance in caring for Mr. Elam. Dr. Laureano consulted yesterday for elevated BP, Norvasc started and BP improved. Evening Rounds: Small bowel series showed fairy rapid transit of Gastrografin through the gut, I have discontinued NG. Will begin to slowly advance diet as tolerated. I did review with the patient this evening his pathology report which did return "quite well." He was found to have a tumor that did extend through the wall of the colon and he had 0 out of 23 positive lymph nodes. Hopefully over the next 24-48 hours the patient's diet will be able to be advanced as tolerated and he will be able to be discharged at that time. Plan - 11/21/17 (Mirakian) Overall, Mr. Elam appears to be making gains. Blood pressure improved with initiation of Norvasc 5mg on 11/20/17. Will continue Norvasc and continue to monitor blood pressure closely. Monitor for signs of hypotension. 11-22-2017 POD #5 Doing well, regular diet starting with breakfast. If he tolerates this today, may discharge later today or tomorrow. BP managed by hospitalist, appointment with Dr. Temple next week. Post op with Dr. Quintanilla 12/01. Dr. Meraz discussed the good pathology report, no lymph nodes involved Mariya note: I am pleased with the patient's progress from a surgical standpoint at this time. Will go ahead and heplock his IV fluids this evening. If he continues tolerating a regular diet without difficulty we will likely discharge the patient tomorrow morning. 11-23-17 POD #6 Doing quite well, ready for discharge. He still thinks he does not have HTN, appointment with Dr. Temple for 11/27, Rx Norvasc for 14 days e-scripted to [facility] Follow up with Dr. Quintanilla 12/01 for post op care and oncology recommendations.
--- NOTE | 2017-11-24 07:13 | Discharge Summary ---
Discharge Information Date of admission: 11/17/17 06:38 Attending Physician: Nick Meraz MD Primary care physician: Osbaldo Temple MD Consults: 11/20/17 16:25 Physician Consult [CONS] Routine Consulting Provider: Wayne Laureano Reason For Exam: BP, medical management Ordering Provider has Notified Channel Sales Director: Yes Dr. Meraz covering while Dr. Quintanilla is out. - Discharge Diagnosis (1) Colon cancer, ascending Status: Acute (2) Ileus following gastrointestinal surgery Status: Resolved (3) Obesity Status: Chronic (4) Elevated BP without diagnosis of hypertension Status: Suspected (5) Elevated blood pressure, situational Status: Suspected (6) Hypothyroidism Status: Chronic - Procedures Procedures: DATE OF OPERATION 11/17/2017 PREOPERATIVE DIAGNOSIS 1. Adenocarcinoma of the cecum. 2. Obesity. POSTOPERATIVE DIAGNOSES 1. Adenocarcinoma of ascending colon. 2. Intraabdominal adhesions. 3. Obesity. OPERATION Laparotomy, lysis of intraabdominal adhesions and open right hemicolectomy. SURGEON Dr. Quintanilla ASSISTAN Dr. Ly - Laboratory Labs: 11/23/17 03:52 11/23/17 03:52 - Radiology Radiology: 11/15/2017 KUB upright Impression: 1. NG tube needs to be advanced 12 at 15 cm. This was called to the nursing floor when study provided. 2. Random air fluid levels involving both large and small bowel most likely postoperative ileus. No significant free air identified on the upright view. 11/21/2017 KUB upright Comparison: Radiographs dated November 20, 2017 Findings: Surgical kiet again noted. Nasogastric tube has been advanced with the tip now projecting over the proximal stomach. Diffusely dilated small and large bowel with air-fluid levels again seen. The overall degree of bowel distention has improved. No free air. There is colonic gas seen diffusely. Impression: Slight interval improvement in the ileus pattern. 11/21/2017 Comparison: Abdominal x-rays from earlier today Findings: Water-soluble contrast was administered followed by serial abdominal radiographs. This demonstrated initial slow motility through dilated proximal small bowel. Small bowel dilatation up to 5 cm in diameter. Contrast reached the rectum by 3 h and 15 minutes after administration excluding a complete obstruction. Impression: Normal intestinal transit time of less than three hours. - Pathology Invasive moderately differentiated colonic adenocarcinoma, grade 2, focally invading through muscular wall of bowel and involving superficial pericolonic adipose tissue (T3). No blood vascular or perineural invasion identified. Resection margins free of tumor and dysplasia. Second focus of invasion moderately differentiated colonic adenocarcinoma, grade 2, arising in tubulovillous adenoma, 3 cm distal to primary focus of carcinoma. Tubulovillous adenomatous with low-grade dysplasia 2. No metastasis identified in 23 regional lymph nodes. - History of Present Illness HPI: Impression 1. Adenocarcinoma of the cecum found at total colonoscopy with biopsies on . 2. Irregularity and wall thickening at the cecum with adjacent mildly prominent lymph nodes demonstrated on 10/13/2017 CT scan of the abdomen and pelvis. 3. 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 4. Chronic constipation. 5. Personal history of adenomatous colon and rectal polyps. 6. Benign left renal cyst. Plan Schedule patient for a laparotomy with right hemicolectomy by Dr. Quintanilla at [facility] in the near future. Patient Education Dr. Quintanilla did review with the patient today the pathology report findings from the procedure performed on 10/31/2017. I did tell the patient about the pathology report diagnosis of cecal adenocarcinoma. I had previously told the patient on 10/31/2017 on the day of his colonoscopy procedure that he had a mass present which appeared to be cecal adenocarcinoma. I did talk with the patient about treatment of the cecal adenocarcinoma. I did talk with the patient about options for operative treatment of the cecal adenocarcinoma. One option discussed was open laparotomy with right hemicolectomy. Another operation discussed was robotic laparoscopic right hemicolectomy. The nature of each of these two procedures was explained to the patient in detail. Advantages and disadvantages of each of the two approaches were discussed. Expected benefits of undergoing a right hemicolectomy were described to the patient. Alternatives were described. Potential risks and complications were discussed including anesthetic risk, bleeding, infection, poor wound healing and problems with the anastomosis. Recovery from the operation was discussed. Return to work was discussed. Questions were solicited from the patient. All of his questions were answered. Greater than 50% of a 43-minute long office visit was spent with direct [id number] counseling of the patient regarding all of this today. The office visit began at 3:40 p.m. and ended at 4:23 p.m. At the end of all this, the patient is thinking that he would probably prefer to just have an open laparotomy with right hemicolectomy operation. Hospital Course This is a general summary of the patient's hospital course. For more details refer to the complete medical record. Hospital course: 11/17/2017 Laparotomy, lysis of intraabdominal adhesions and open right hemicolectomy. Diagnosis of adenocarcinoma of ascending colon. Transferred to CCU postoperatively for close monitoring. 11/18/1017 POD #1 IMPRESSION Doing well following laparotomy, lysis of intraabdominal adhesions and open right hemicolectomy on 11/17/2017. PLAN 1. Attempt to get the patient up out of bed in a chair and ambulate him a little bit today to increase mobilization of the patient. 2. Continue Lovenox and sequential compression devices for deep venous thrombosis prophylaxis. 3. Intravenous Pepcid for GI prophylaxis. 11/19/2017 POD #2 PLAN 1. Start clear liquid diet with toast and crackers. 2. Continue to advance activity as tolerated. 3. Discontinue Wu catheter. 4. Continue Lovenox and sequential compression devices for deep venous thrombosis prophylaxis. 5. Continue intravenous Pepcid for GI prophylaxis. 6. Transfer patient from Intensive Care Unit out to a room on Surgical Unit. 11-20-2017 POD #3 New development of Ileus. NG placed and diet back to sips and chips Pharmacy consult for PPN, may need PICC and TPN if ileus does not resolve soon. CBC, BMP now and in am, watch lytes, WBC, etc. PT consult for ambulation and strength. monitor urine output, urine dark and marginal output Encourage ambulation. 11-21-2017 POD #4 KUB upright looks better today, some improvement in distention and air-fluid levels. Passing quite a bit of flatus and a lot of bowel sounds. Will clamp NG and start clears sparingly if he is able to swallow with NG. SBS Gastrografin through NG. Dr. Laureano consulted yesterday for elevated BP, Norvasc started and BP improved. Evening Rounds: Small bowel series showed fairy rapid transit of Gastrografin through the gut. NG DC'd, and diet slowly advanced as tolerated. Dr. Meraz reviewed with the patient this evening his pathology report which did return "quite well." He was found to have a tumor that did extend through the wall of the colon and he had 0 out of 23 positive lymph nodes. Plan - 11/21/17 (Mirakian) Overall, Mr. Elam appears to be making gains. Blood pressure improved with initiation of Norvasc 5mg on 11/20/17. Will continue Norvasc and continue to monitor blood pressure closely. Monitor for signs of hypotension. 11-22-2017 POD #5 Doing well, regular diet starting with breakfast. If he tolerates this today, may discharge later today or tomorrow. BP managed by hospitalist, appointment with Dr. Temple next week for BP check. Post op with Dr. Quintanilla 12/01. Heplock his IV fluids this evening. 11-23-17 POD #6 Doing quite well, ready for discharge. He still thinks he (patient) does not have HTN, appointment with Dr. Temple for , Rx Norvasc for 14 days e-scripted to [facility] Follow up with Dr. Quintanilla 12/01 for post op care and oncology recommendations. Time spent with patient: discharge greater than 30 minutes DVT Prophylaxis: SCD's, Lovenox GI Prophylaxis: Protonix Discharge Plan - Med Rec/Dispo Referrals/Follow Up: Raffy Temple MD [Family Provider] - 11/27/17 2:00 pm (FOR BLOOD PRESSURE CHECK) Bentley Quintanilla MD [Physician] - 12/01/17 4:00 pm (FOR POST OPERATIVE APPOINTMENT ) Louis Instructions: Colectomy (DC), Ileus (DC), Colectomy Diet (DC) Prescriptions: New Amlodipine [Norvasc] 5 mg PO DAILY #14 tab Continue Ranitidine [Zantac] 150 mg PO DAILY ferrous sulfate 325 mg (65 mg iron) tablet 325 mg PO DAILY tab Changed Hydrocodone/APAP 5/325 [[place] 5/325] 1 tab PO Q5H PRN #25 tab PRN Reason: Pain - Disposition Discharged Home, Self-Care
== END 2017-11-23 11:27 | disposition home or self-care (01) | DRG 330 ==
LOC: SRG 06:38 → CCU 11:33 → SRG 11-19 13:01
PROVIDERS: ADMIT Surgery; ATTEND Surgery